=== PATIENT | female | born 1975 | race Caucasian/White ===

== ENCOUNTER 2017-12-04 23:50 | Inpatient (IN) | payer BC ==
[2017-12-05] MEDS: BUPIVACAINE 0.5% 30 ML VIAL INJ
[2017-12-05 00:27] LABS: URINE PH (Dip) POC 5.5 (5.0-8.5)
[2017-12-05 00:27] LABS: URINE BLOOD (Dip) POC Negative (NEGATIVE); URINE GLUCOSE (Dip) POC Negative (NEGATIVE); URINE KETONES (Dip) POC 4+ (NEGATIVE); URINE LEUKOCYTE EST (Dip) POC Negative (NEGATIVE); URINE NITRITE (Dip) POC Negative (NEGATIVE); URINE TOTAL PROTEIN POC 1+ (NEGATIVE)
[2017-12-05] MEDS: ONDANSETRON 4 MG INJ IV ×2 (00:54→03:04)
[2017-12-05] MEDS: SOD CHLORIDE 0.9% 1,000 ML IV ×4 (00:55→12:13)
[2017-12-05 01:34] LABS: ADD MAN DIFF? NO
[2017-12-05] MEDS: morphine 2 MG INJ IV (01:34)
[2017-12-05 01:37] LABS: WHITE BLOOD COUNT 16.9 10^3/ul (4.8-10.8)
[2017-12-05 01:37] LABS: BASOPHIL # 0.1 10^3/ul (0.0-0.1); BASOPHILS % 0.5 % (0.0-2.0); HEMATOCRIT 47.4 % (37.0-47.0); HEMOGLOBIN 15.1 g/dl (12.0-16.0); LYMPHOCYTES # 0.7 10^3/ul (0.8-2.9); LYMPHOCYTES % 3.8 % (15.0-51.0); MEAN CORPUSCULAR HEMOGLOBIN 30.4 pg (29.0-33.0); MEAN CORPUSCULAR HGB CONC 31.9 g/dl (32.0-37.0); MEAN CORPUSCULAR VOLUME 95.4 fl (82.0-101.0); MEAN PLATELET VOLUME 10.9 fl (7.4-10.4); MONOCYTE # 0.3 10^3/ul (0.3-0.9); MONOCYTES % 1.9 % (0.0-11.0); NEUTROPHIL # 15.8 10^3/ul (1.6-7.5); NEUTROPHILS % 93.4 % (39.0-77.0); PLATELET COUNT 271 10^3/UL (140-415); RED BLOOD COUNT 4.97 10^6/ul (4.20-5.40); RED CELL DISTRIBUTION WIDTH 12.4 % (11.5-14.5)
[2017-12-05 02:07] LABS: ALANINE AMINOTRANSFERASE 41 IU/L (13-69); ALBUMIN 4.9 g/dl (3.3-4.9); ALBUMIN/GLOBULIN RATIO 1.48; ALKALINE PHOSPHATASE 70 IU/L (42-121); ANION GAP 23 (8-16); ASPARTATE AMINO TRANSFERASE 40 IU/L (15-46); BILIRUBIN,INDIRECT 0.7 mg/dl (0-1.1); BILIRUBIN,TOTAL 0.7 mg/dl (0.2-1.3); BLOOD UREA NITROGEN 12 mg/dl (7-20); CALCIUM 8.9 mg/dl (8.4-10.2); CARBON DIOXIDE 16 mmol/L (21-31); CHLORIDE 109 mmol/L (97-110); CREATININE 0.56 mg/dl (0.44-1.00); GLUCOSE 99 mg/dl (70-220); LIPASE 62 U/L (23-300); POTASSIUM 5.3 mmol/L (3.5-5.1); SODIUM 143 mmol/L (135-144); TOTAL PROTEIN 8.2 g/dl (6.1-8.1)
[2017-12-05] MEDS: METOCLOPRAMIDE 10 MG INJ IV ×2 (02:21→04:35)
[2017-12-05] MEDS ORDERED: ACETAMINOPHEN 325 MG TAB PO ×2 (02:30→13:00)
[2017-12-05] MEDS ORDERED: morphine 2 MG INJ IV (02:30)
[2017-12-05] MEDS ORDERED: NACL 0.9% 3 ML SYG IV (02:30)
[2017-12-05] MEDS: PIPER-TAZO 3.375 GM IV (PMX) 100 ML IVPB ×4 (02:50→17:42)
[2017-12-05] MEDS: HYDROmorphONE 0.5 MG/0.5 ML SYG IV ×4 (03:05→21:25)
[2017-12-05] MEDS ORDERED: ONDANSETRON 4 MG INJ IV ×3 (04:30→14:30)
[2017-12-05] MEDS ORDERED: VITAMIN A & D 5 GM OINT PACKET TOP (04:31)
[2017-12-05] MEDS: clonAZEPAM 0.5 MG TAB PO ×5 (04:34→21:21)
[2017-12-05 06:08] LABS: ADD MAN DIFF? NO
[2017-12-05 06:13] LABS: BASOPHIL # 0.1 10^3/ul (0.0-0.1); BASOPHILS % 0.3 % (0.0-2.0); HEMATOCRIT 36.8 % (37.0-47.0); HEMOGLOBIN 12.5 g/dl (12.0-16.0); LYMPHOCYTES # 0.8 10^3/ul (0.8-2.9); LYMPHOCYTES % 4.7 % (15.0-51.0); MEAN CORPUSCULAR HEMOGLOBIN 30.9 pg (29.0-33.0); MEAN CORPUSCULAR VOLUME 91.1 fl (82.0-101.0); MEAN PLATELET VOLUME 10.3 fl (7.4-10.4); MONOCYTE # 0.7 10^3/ul (0.3-0.9); MONOCYTES % 4.3 % (0.0-11.0); NEUTROPHIL # 14.7 10^3/ul (1.6-7.5); NEUTROPHILS % 90.3 % (39.0-77.0); PLATELET COUNT 313 10^3/UL (140-415); RED BLOOD COUNT 4.04 10^6/ul (4.20-5.40); RED CELL DISTRIBUTION WIDTH 12.4 % (11.5-14.5)
[2017-12-05 06:13] LABS: WHITE BLOOD COUNT 16.2 10^3/ul (4.8-10.8)
[2017-12-05 06:30] LABS: HEMOGLOBIN A1C 5.1 % (0-5.9)
[2017-12-05 06:34] LABS: ALANINE AMINOTRANSFERASE 35 IU/L (13-69); ALBUMIN 3.6 g/dl (3.3-4.9); ALBUMIN/GLOBULIN RATIO 1.38; ALKALINE PHOSPHATASE 54 IU/L (42-121); ANION GAP 17 (8-16); ASPARTATE AMINO TRANSFERASE 20 IU/L (15-46); BILIRUBIN,INDIRECT 0.7 mg/dl (0-1.1); BILIRUBIN,TOTAL 0.7 mg/dl (0.2-1.3); BLOOD UREA NITROGEN 8 mg/dl (7-20); CALCIUM 8.3 mg/dl (8.4-10.2); CARBON DIOXIDE 18 mmol/L (21-31); CHLORIDE 112 mmol/L (97-110); CHOL/HDL RATIO 3.5 RATIO; CHOLESTEROL 147 mg/dl (100-200); CREATININE 0.51 mg/dl (0.44-1.00); GLUCOSE 98 mg/dl (70-220); HDL CHOLESTEROL 42 mg/dl (34-88); LDL CHOLESTEROL,CALCULATED 96 mg/dl; MAGNESIUM 1.7 mg/dl (1.7-2.5); SODIUM 143 mmol/L (135-144); TOTAL PROTEIN 6.2 g/dl (6.1-8.1); TRIGLYCERIDES 44 mg/dl (0-149)
[2017-12-05] MEDS ORDERED: clonAZEPAM 0.5 MG TAB PO (09:00)
[2017-12-05] MEDS: MAGNESIUM SULFATE 2 GM/50 ML 50 ML IVPB (09:38)
[2017-12-05] MEDS: SOD CHLORIDE 0.9% 500 ML IV (11:42)
[2017-12-05] MEDS ORDERED: FENTAnyl 50 MCG/ML VIAL (12:15)
[2017-12-05] MEDS ORDERED: ROCURONIUM 50 MG INJ (12:15)
[2017-12-05] MEDS ORDERED: MIDAZOLAM 1 MG/ML 2 ML INJ (12:15)
[2017-12-05] MEDS ORDERED: ROPIVACAINE 0.5 % 30 ML VIAL (12:15)
[2017-12-05] MEDS ORDERED: PROPOFOL 20 ML (12:15)
[2017-12-05] MEDS: LORAZEPAM 2 MG INJ IV (12:34)
[2017-12-05] MEDS ORDERED: BUPIVACAINE 0.5% (SDV) 30 ML INJ (13:21)
[2017-12-05] MEDS ORDERED: ONDANSETRON 4 MG INJ (14:01)
[2017-12-05] MEDS ORDERED: METOCLOPRAMIDE 10 MG INJ (14:01)
[2017-12-05] MEDS ORDERED: DEXAMETHASONE 4 MG/ML 1 ML INJ (14:01)
[2017-12-05] MEDS ORDERED: ACETAMINOPHEN 1000MG/100ML IV 100 ML (14:01)
[2017-12-05] MEDS ORDERED: SUGAMMADEX SODIUM 200 MG/2 ML VIAL IV (14:02)
[2017-12-05] MEDS ORDERED: MEPERIDINE 25 MG INJ IV (14:30)
[2017-12-05] MEDS ORDERED: FENTAnyl 50 MCG/ML VIAL IV ×3 (14:30)
[2017-12-05] MEDS ORDERED: EPHEDrine SULFATE 50 MG/5 ML SYG IV (14:30)
[2017-12-05] MEDS ORDERED: METOCLOPRAMIDE 10 MG INJ IV (14:30)
[2017-12-05] MEDS ORDERED: HYDROmorphONE (0.2 MG/ML) 10ML SYG IV ×3 (14:30)
[2017-12-05] MEDS: DIPHENHYDRAMINE 50 MG INJ IV (15:11)
[2017-12-05] MEDS: D5-NS + KCL 20 MEQ 1,000 ML IV ×2 (16:09→22:52)
[2017-12-05] MEDS ORDERED: PIPER-TAZO 3.375 GM IV (PMX) 100 ML IVPB (18:00)
[2017-12-06] MEDS: PIPER-TAZO 3.375 GM IV (PMX) 100 ML IVPB ×3 (00:37→11:49)
[2017-12-06] MEDS: HYDROmorphONE 0.5 MG/0.5 ML SYG IV ×3 (01:54→09:50)
[2017-12-06] MEDS: D5-NS + KCL 20 MEQ 1,000 ML IV ×2 (01:56→08:52)
[2017-12-06] MEDS: clonAZEPAM 0.5 MG TAB PO ×2 (05:32→11:49)
[2017-12-06 06:08] LABS: ADD MAN DIFF? NO
[2017-12-06 06:12] LABS: BASOPHILS % 0.3 % (0.0-2.0); EOSINOPHILS # 0.1 10^3/ul (0.0-0.5); EOSINOPHILS % 0.5 % (0.0-7.0); HEMATOCRIT 34.7 % (37.0-47.0); HEMOGLOBIN 11.5 g/dl (12.0-16.0); LYMPHOCYTES # 1.5 10^3/ul (0.8-2.9); LYMPHOCYTES % 13.6 % (15.0-51.0); MEAN CORPUSCULAR HEMOGLOBIN 30.9 pg (29.0-33.0); MEAN CORPUSCULAR HGB CONC 33.1 g/dl (32.0-37.0); MEAN CORPUSCULAR VOLUME 93.3 fl (82.0-101.0); MEAN PLATELET VOLUME 10.4 fl (7.4-10.4); MONOCYTE # 0.7 10^3/ul (0.3-0.9); MONOCYTES % 6.1 % (0.0-11.0); NEUTROPHIL # 8.9 10^3/ul (1.6-7.5); NEUTROPHILS % 79.2 % (39.0-77.0); PLATELET COUNT 312 10^3/UL (140-415); RED BLOOD COUNT 3.72 10^6/ul (4.20-5.40); RED CELL DISTRIBUTION WIDTH 12.7 % (11.5-14.5)
[2017-12-06 06:12] LABS: WHITE BLOOD COUNT 11.2 10^3/ul (4.8-10.8)
[2017-12-06 06:42] LABS: ALBUMIN 3.4 g/dl (3.3-4.9); ANION GAP 11 (8-16); BLOOD UREA NITROGEN 4 mg/dl (7-20); CALCIUM 8.2 mg/dl (8.4-10.2); CARBON DIOXIDE 29 mmol/L (21-31); CHLORIDE 110 mmol/L (97-110); CREATININE 0.59 mg/dl (0.44-1.00); GLUCOSE 118 mg/dl (70-220); MAGNESIUM 2.2 mg/dl (1.7-2.5); PHOSPHORUS 2.5 mg/dl (2.5-4.9); POTASSIUM 4.4 mmol/L (3.5-5.1); SODIUM 146 mmol/L (135-144)
[2017-12-06] MEDS: ENOXAPARIN 40 MG/0.4 ML SYG SC (07:00)
[2017-12-06] MEDS: HYDROCODONE/APAP (5/325) TAB PO (13:20)
== END 2017-12-06 16:05 | disposition home or self-care (01) | DRG 343 ==
LOC: MS2 12-05 03:27 → E/R 23:50 → MS2 12-05 02:10
PROVIDERS: Family Medicine
PROC: 0DTJ4ZZ Resection of Appendix, Percutaneous Endoscopic Approach (ICD-10-PCS; principal; 2017-12-05 11:17)
DX: K35.80 Unspecified acute appendicitis (principal); F41.9 Anxiety disorder, unspecified; D25.9 Leiomyoma of uterus, unspecified; N83.201 Unspecified ovarian cyst, right side
CPT/HCPCS: 74176; 76856; 80053; 80061; 80069; 81003; 81025; 83036; 83690; 83735; 84443; 85025; 88304; 96374; 96375; 96376; 99285-25